=== PATIENT | male | born 1975 | race Caucasian/White ===

== ENCOUNTER → 2019-11-13 | Outpatient (CLI) | payer BC ==
[~2019-11-13] MED LIST: Motrin,Rufen800 MG PO; Orphenadrine C100 MG PO
[2019-11-13 15:33] LABS: BASO # 0.1 10*3/uL (0.0-0.1); BASO % 0.9 % (0.0-1.0); EOS # 0.2 10*3/uL (0.0-0.4); EOS % 2.2 % (1.0-4.0); HEMOGLOBIN 19.5 g/dl (14.0-18.0); LYMPH # 2.7 10*3/uL (1.3-4.4); LYMPH % 30.2 % (27.0-41.0); MEAN CORPUSCULAR HGB 33.3 pg (27.0-31.0); MEAN CORPUSCULAR HGB CONC 35.5 g/dl (33.0-37.0); MEAN PLATELET VOLUME 12.1 fl (9.6-12.3); MONO # 0.6 10*3/uL (0.1-1.0); MONO % 6.9 % (3.0-9.0); NEUT # 5.2 10*3/uL (2.3-7.9); NEUT % 58.1 % (47.0-73.0); PLATELET COUNT AUTOMATED 130 10*3/uL (130-400); RED BLOOD COUNT 5.85 10*6/uL (4.50-5.90); RED CELL DISTRI WIDTH 12.3 % (0-14.5)
[2019-11-13 16:02] LABS: ALBUMIN 3.8 gm/dl (3.1-4.5); ALKALINE PHOSPHATASE 90 U/L (45-117); BILIRUBIN NEGATIVE (NEGATIVE); BLOOD NEGATIVE (NEGATIVE); BUN 11 mg/dl (7-24); CHLORIDE 104 mmol/L (98-107); CHOLESTEROL 171 mg/dL (<200); CLARITY SL CLOUDY (CLEAR); COLOR YELLOW (YELLOW); CREATININE 0.79 mg/dL (0.70-1.30); GLUCOSE 3+ (NEGATIVE); HDL CHOLESTEROL 19 mg/dl (40-60); KETONE NEGATIVE (NEGATIVE); LEUKO ESTERASE NEGATIVE (NEGATIVE); NITRITE NEGATIVE (NEGATIVE); POTASSIUM 4.1 mmol/L (3.5-5.1); SGOT/AST 62 IU/L (3-35); SGPT/ALT 146 U/L (12-78); SODIUM 136 mmol/L (136-145); TOTAL PROTEIN 7.6 gm/dL (6.4-8.2); TRIGLYCERIDES 619 mg/dl (<150); UROBILINOGEN 0.2 E.U./dl (0.2-1.0)
[2019-11-13 16:23] LABS: BACTERIA 1+; EPITHELIAL CELLS 0-3; RBC 0-2 rbc/hpf (0-2); WBC 0-2 wbc/hpf (0-5)
== END | disposition home or self-care (01) ==
LOC: LAB 14:03
PROVIDERS: Family Medicine
DX: Z13.220 Encounter for screening for lipoid disorders (principal); N52.9 Male erectile dysfunction, unspecified; R53.82 Chronic fatigue, unspecified; Z68.29 Body mass index [BMI] 29.0-29.9, adult